=== PATIENT | female | born 1940 | race African-American/Black ===

== ENCOUNTER 2019-09-26 12:54 | Emergency (ER) | payer MEDICARE, MEDICAID ==
[~2019-09-26] VITALS: Ht 154.9 cm; Wt 88.0 kg
[2019-09-26 15:18] VITALS: BP 129/85
== END 2019-09-26 15:19 | disposition home or self-care (01) ==
LOC: ER 12:54
DX: J06.9 Acute upper respiratory infection, unspecified (principal); J20.9 Acute bronchitis, unspecified; I11.9 Hypertensive heart disease without heart failure; F17.200 Nicotine dependence, unspecified, uncomplicated; H26.9 Unspecified cataract; H40.9 Unspecified glaucoma; R91.1 Solitary pulmonary nodule; Z90.710 Acquired absence of both cervix and uterus
CPT/HCPCS: 71045; 99283

== ENCOUNTER 2020-05-11 13:56 | Inpatient (IN) | payer MEDICARE, MEDICAID ==
[~2020-05-11] VITALS: Ht 160 cm; Wt 80.3 kg
[2020-05-11] MEDS ORDERED: SODIUM CHLORIDE 0.9% 1,000 ML IV ONE (15:11)
[2020-05-11] MEDS ORDERED: KETOROLAC 30MG/ML VIAL IV STA (15:11)
[2020-05-11 15:35] LABS: CHLORIDE 105 mEq/L (98-107)
[2020-05-11 15:36] LABS: BASOPHILS % 1.1 % (0.0-2.0); EOSINOPHILS % 0.7 % (0.0-5.0); HEMATOCRIT. 43.3 % (36.0-48.0); HEMOGLOBIN. 14.7 g/dL (12.0-16.0); LYMPHOCYTES % 40.5 % (20.0-50.0); MEAN CORPUSCULAR HEMOGLOBIN 30.2 pg (28.0-32.0); MEAN CORPUSCULAR VOLUME 88.7 fL (81.0-99.0); MEAN PLATELET VOLUME 8.9 fl (7.4-10.4); NEUTROPHILS % 48.7 % (40.0-76.0); PLATELET 220 x1000/uL (130-400); RED BLOOD CELL COUNT 4.88 mill/uL (4.2-5.4); RED CELL DISTRIBUTION WIDTH 15.3 % (11.6-14.6)
[2020-05-11 16:15] LABS: CLARITY URINE CLEAR (CLEAR); COLOR URINE YELLOW (YELLOW); KETONES URINE NEGATIVE (NEGATIVE); LEUKOCYTE ESTERASE URINE NEGATIVE (NEGATIVE); NITRITE URINE NEGATIVE (NEGATIVE); OCCULT BLOOD URINE NEGATIVE (NEGATIVE); PROTEIN URINE NEGATIVE (NEGATIVE); SPECIFIC GRAVITY URINE 1.012 (1.005-1.030)
[2020-05-11] MEDS ORDERED: POTASSIUM CHLORIDE 20MEQ TABLET SR PO ONE (17:30)
[2020-05-11] MEDS ORDERED: ASPIRIN 81MG TABLET PO ONE (18:45)
[2020-05-11 22:40] VITALS: BP 156/75
[2020-05-11] MEDS ORDERED: LORA-249 PO (22:42)
[2020-05-11] MEDS ORDERED: SERT25TA74 PO (22:42)
[2020-05-11] MEDS ORDERED: LISI10TA5 PO (22:42)
[2020-05-11] MEDS ORDERED: HYDR-3282 PO (22:42)
[2020-05-11] MEDS ORDERED: CARV3.1242 PO (22:42)
[2020-05-11] MEDS ORDERED: ONDA4TAB5 PO (22:42)
[2020-05-11] MEDS ORDERED: ONDANSETRON HCL 4MG TABLET PO SCH (23:15)
[2020-05-11] MEDS ORDERED: ONDANSETRON HCL 4MG TABLET PO PRN (23:30)
[2020-05-11] MEDS: CARVEDILOL 3.125 MG TABLET PO SCH (23:47)
[2020-05-11] MEDS: LISINOPRIL 10MG TABLET PO SCH (23:47)
[2020-05-11] MEDS: LORAZEPAM 0.5MG TABLET PO PRN (23:47)
[2020-05-12] VITALS: BP 143/69
[2020-05-12] MEDS ORDERED: LATANOPROST 0.005% OPHTH DROPS 2.5ML EACHEYE SCH
[2020-05-12] MEDS: HYDROCODONE/ACETAMINOPHEN 5/325MG TABLET PO PRN ×2 (00:05→13:29)
[2020-05-12] MEDS: BRIMONIDINE 0.2% OPHTH DROPS 5ML BOTHEYE SCH ×2 (00:30→09:05)
[2020-05-12] MEDS ORDERED: CLONIDINE 0.1MG TABLET PO PRN (01:00)
[2020-05-12 02:02] LABS: CREATINE KINASE 81 IU/L (26-192)
[2020-05-12 02:03] LABS: CREATINE KINASE MB FRACTION < 1.0 ng/mL (0.5-3.6)
[2020-05-12 04:00] VITALS: BP 124/61
[2020-05-12 06:51] LABS: BASOPHILS % 0.8 % (0.0-2.0); HEMATOCRIT. 38.6 % (36.0-48.0); HEMOGLOBIN. 13.1 g/dL (12.0-16.0); LYMPHOCYTES % 42.2 % (20.0-50.0); MEAN CORPUSCULAR HEMOGLOBIN 29.5 pg (28.0-32.0); MEAN CORPUSCULAR VOLUME 86.9 fL (81.0-99.0); PLATELET 213 x1000/uL (130-400); RED BLOOD CELL COUNT 4.44 mill/uL (4.2-5.4); RED CELL DISTRIBUTION WIDTH 15.2 % (11.6-14.6)
[2020-05-12 07:00] LABS: CHLORIDE 109 mEq/L (98-107)
[2020-05-12 07:12] LABS: CREATINE KINASE 70 IU/L (26-192)
[2020-05-12 07:14] LABS: CREATINE KINASE MB FRACTION 1.2 ng/mL (0.5-3.6)
[2020-05-12 08:00] VITALS: BP 135/58
[2020-05-12] MEDS ORDERED: NON FORMULARY PATIENT HOME MED XX SCH (09:00)
[2020-05-12] MEDS: SERTRALINE HCL 25MG TABLET PO SCH ×2 (09:00→09:08)
[2020-05-12] MEDS ORDERED: ENOXAPARIN 40MG/0.4ML SYR SUBCUT SCH (09:00)
[2020-05-12] MEDS: LISINOPRIL 10MG TABLET PO SCH (09:05)
[2020-05-12] MEDS: CARVEDILOL 3.125 MG TABLET PO SCH (09:05)
[2020-05-12] MEDS: LORAZEPAM 0.5MG TABLET PO PRN (09:20)
[2020-05-12] MEDS ORDERED: PANTOPRAZOLE SODIUM 40 MG/VIAL IV SCH (10:00)
[2020-05-12 12:00] VITALS: BP 143/63
[2020-05-12] MEDS ORDERED: POTASSIUM CHLORIDE 20MEQ TABLET SR PO SCH (12:00)
[2020-05-12] MEDS ORDERED: DILTIAZEM HCL 30MG TABLET PO SCH (14:00)
[2020-05-12] MEDS ORDERED: PROT40 MT (15:16)
[2020-05-12] MEDS ORDERED: CARSR90 MT (15:16)
[2020-05-12] MEDS ORDERED: POLYETHYLENE GLYCOL 3350 (17GM) 1 DOSE PACK PO SCH (15:30)
[2020-05-12 16:00] VITALS: BP 1/68
[2020-05-12 16:15] LABS: CREATINE KINASE 78 IU/L (26-192)
[2020-05-12 16:16] LABS: CREATINE KINASE MB FRACTION < 1.0 ng/mL (0.5-3.6)
[2020-05-12 16:24] VITALS: BP 141/68
== END 2020-05-12 17:02 | disposition home or self-care (01) | DRG 392 ==
LOC: ER 13:56 → ENRESERV 21:35 → 8WST 22:18
PROVIDERS: ADMIT Internal Medicine; ATTEND Internal Medicine
DX: R10.13 Epigastric pain (principal); J44.9 Chronic obstructive pulmonary disease, unspecified; K57.90 Diverticulosis of intestine, part unspecified, without perforation or abscess without bleeding; K80.20 Calculus of gallbladder without cholecystitis without obstruction; E87.6 Hypokalemia; I11.9 Hypertensive heart disease without heart failure; K75.3 Granulomatous hepatitis, not elsewhere classified; D73.89 Other diseases of spleen; I49.9 Cardiac arrhythmia, unspecified; M19.90 Unspecified osteoarthritis, unspecified site; D72.821 Monocytosis (symptomatic); Z90.710 Acquired absence of both cervix and uterus; Z72.0 Tobacco use
CPT/HCPCS: 36415; 71045; 74176; 80053; 81003; 82550; 82553; 84484; 85025; 93005; 93306; 99285; C9113; J1650; J1885; J7030

== ENCOUNTER 2020-08-30 10:42 | Emergency (ER) | payer MEDICARE, MEDICAID ==
[~2020-08-30] VITALS: Ht 154.9 cm; Wt 80.0 kg
[~2020-08-30 10:42] MED LIST: CARSR90 MT; HYDR-3282 PO; LISI10TA5 PO; LORA-249 PO; ONDA4TAB5 PO; PROT40 MT; SERT25TA74 PO
[2020-08-30 12:16] LABS: BASOPHILS % 1.1 % (0.0-2.0); EOSINOPHILS % 0.7 % (0.0-5.0); HEMATOCRIT. 45.3 % (36.0-48.0); LYMPHOCYTES % 34.8 % (20.0-50.0); MEAN CORPUSCULAR HEMOGLOBIN 29.3 pg (28.0-32.0); MEAN CORPUSCULAR VOLUME 88.5 fL (81.0-99.0); MEAN PLATELET VOLUME 9.7 fl (7.4-10.4); MONOCYTES % 6.3 % (2.0-8.0); NEUTROPHILS % 57.1 % (40.0-76.0); PLATELET 185 x1000/uL (130-400); RED BLOOD CELL COUNT 5.11 mill/uL (4.2-5.4); RED CELL DISTRIBUTION WIDTH 14.1 % (11.6-14.6)
[2020-08-30 12:19] LABS: CHLORIDE 110 mEq/L (98-107)
[2020-08-30 16:34] VITALS: BP 155/88
== END 2020-08-30 16:35 | disposition home or self-care (01) ==
LOC: ER 11:28
DX: R42 Dizziness and giddiness (principal); I10 Essential (primary) hypertension; Z79.899 Other long term (current) drug therapy; Z90.710 Acquired absence of both cervix and uterus
CPT/HCPCS: 36415; 70551; 80053; 85025; 93005; 99285

== ENCOUNTER → 2022-03-10 | Outpatient (CLI) | payer MEDICARE, MEDICAID ==
[~2022-03-10] MED LIST changes: -HYDR-3282 PO; +HYDR-4348 PO; +LISI10TA26 PO; -LISI10TA5 PO
== END | disposition home or self-care (01) ==
LOC: NM 08:41
PROVIDERS: ATTEND Internal Medicine Endocrinology, Diabetes & Metabolism
DX: E05.90 Thyrotoxicosis, unspecified without thyrotoxic crisis or storm (principal); E04.9 Nontoxic goiter, unspecified
CPT/HCPCS: 78014; A9516

== ENCOUNTER 2022-11-04 16:31 | Emergency (ER) | payer MEDICARE, MEDICAID ==
[~2022-11-04] VITALS: Ht 157.5 cm; Wt 80.0 kg
[2022-11-04 16:52] VITALS: BP 139/31
[2022-11-04] MEDS ORDERED: OXYMETAZOLINE HCL NASAL SPRAY 15ML BOTHNSTRLS SCH (21:00)
[2022-11-04 23:57] LABS: BASOPHILS % 0.6 % (0.0-2.0); EOSINOPHILS % 1.2 % (0.0-5.0); HEMATOCRIT. 36.7 % (36.0-48.0); HEMOGLOBIN. 12.3 g/dL (12.0-16.0); LYMPHOCYTES % 30.7 % (20.0-50.0); MEAN CORPUSCULAR HEMOGLOBIN 29.8 pg (28.0-32.0); MEAN CORPUSCULAR VOLUME 89.1 fL (81.0-99.0); MEAN PLATELET VOLUME 9.4 fl (7.4-10.4); MONOCYTES % 6.9 % (2.0-8.0); NEUTROPHILS % 60.6 % (40.0-76.0); PLATELET 239 x1000/uL (130-400); RED BLOOD CELL COUNT 4.12 mill/uL (4.2-5.4); RED CELL DISTRIBUTION WIDTH 14.4 % (11.6-14.6)
== END 2022-11-05 00:50 | disposition home or self-care (01) ==
LOC: ER 16:31
DX: R04.0 Epistaxis (principal); I11.0 Hypertensive heart disease with heart failure; I50.9 Heart failure, unspecified; Z90.710 Acquired absence of both cervix and uterus
CPT/HCPCS: 30901; 36415; 85025; 99283

== ENCOUNTER 2025-04-25 12:38 | Emergency (ER) | payer MEDICARE, MEDICAID ==
[~2025-04-25] VITALS: Ht 154.9 cm; Wt 74.0 kg
[2025-04-25 12:47] VITALS: TEMP 36.9; O2SAT 100
[2025-04-25 13:08] LABS: EOSINOPHILS % 1.4 % (0.0-5.0); HEMATOCRIT. 45.3 % (36.0-48.0); HEMOGLOBIN. 14.9 g/dL (12.0-16.0); LYMPHOCYTES % 34.9 % (20.0-50.0); MEAN CORPUSCULAR HEMOGLOBIN 29.9 pg (28.0-32.0); MEAN CORPUSCULAR VOLUME 90.5 fL (81.0-99.0); MEAN PLATELET VOLUME 9.4 fl (7.4-10.4); NEUTROPHILS % 55.7 % (40.0-76.0); PLATELET 193 x1000/uL (130-400); RED CELL DISTRIBUTION WIDTH 14.1 % (11.6-14.6); WHITE BLOOD COUNT 5.6 x1000/uL (4.5-11.0)
[2025-04-25 13:22] LABS: CHLORIDE 110 mEq/L (98-107); POTASSIUM 3.7 mEq/L (3.5-5.1); SODIUM 145 mEq/L (136-145)
[2025-04-25 13:23] LABS: CALCIUM 10.3 mg/dL (8.7-10.4); CARBON DIOXIDE 26 mEq/L (21-32)
[2025-04-25 13:28] LABS: CREATININE 1.3 mg/dL (0.6-1.0); GLUCOSE 122 mg/dL (70-105); UREA NITROGEN BLOOD 24 mg/dL (9-23)
[2025-04-25 13:30] LABS: ALANINE AMINOTRANSFERASE 13 IU/L (10-49); ALBUMIN 4.1 g/dL (3.2-4.8); ASPARTATE AMINOTRANSFERASE 19 IU/L (<34); BILIRUBIN DIRECT 0.2 mg/dL (<=3.0); BILIRUBIN TOTAL 0.7 mg/dL (0.1-1.0)
[2025-04-25 14:10] LABS: CLARITY URINE CLEAR (CLEAR); COLOR URINE YELLOW (YELLOW); GLUCOSE URINE NEGATIVE (NEGATIVE); KETONES URINE NEGATIVE (NEGATIVE); LEUKOCYTE ESTERASE URINE NEGATIVE (NEGATIVE); NITRITE URINE NEGATIVE (NEGATIVE); OCCULT BLOOD URINE NEGATIVE (NEGATIVE); PROTEIN URINE NEGATIVE (NEGATIVE); SPECIFIC GRAVITY URINE 1.012 (1.005-1.030)
[2025-04-25 15:19] VITALS: BP 136/88; PULSE 73; RESP 16; O2SAT 100
== END 2025-04-25 15:31 | disposition home or self-care (01) ==
LOC: ER 12:38
DX: K29.70 Gastritis, unspecified, without bleeding (principal); I11.0 Hypertensive heart disease with heart failure; I50.9 Heart failure, unspecified; Z79.899 Other long term (current) drug therapy; Z90.710 Acquired absence of both cervix and uterus
CPT/HCPCS: 36415; 74176; 80048; 80076; 81003; 85025; 93005; 99284